=== PATIENT | female | born 1980 | race Caucasian/White ===

== ENCOUNTER 2016-07-20 12:38 | Emergency (ER) | payer OTHER ==
[2016-07-20] MEDS ORDERED: Ondansetron ODT TAB* 4 MG PO ONE (14:04)
[2016-07-20] MEDS ORDERED: Meclizine TAB* 12.5 MG PO ONE (14:04)
--- NOTE | 2016-07-20 14:04 | UC ---
Dizzy HPI HPI Summary: 2 DAYS AGO SLIPPED ON THE ICE AND FELL ON HER BUTTOCKS. HAD INSTANT NAUSEA, TINNITUS AND NECK PAIN. FEELS "FOGGY". INTERMITTENT DIZZINESS. SX WORSE WHEN SHE TURNS HER HEAD TO THE RIGHT. NO NUMBNESS OR TINGLING. STATES AFTER THE INCIDENT SHE WENT TO GO TO THE STORE AND THEN THE NEXT THING SHE REMEMBERS IS HER STANDING OVER HER IN HER TRUCK TELLING HER TO WAKE UP. REPORTS POSSIBLE LOC FOR ABOUT 10 MINUTES. - History Of Current Complaint Chief Complaint: UCHeadInjury Stated Complaint: FELL-DIZZY/NECK COMPLAINT Time Seen by Provider: 07/20/16 13:56 Hx Obtained From: Patient Hx Last Menstrual Period: 07/07/16 Onset/Duration: Sudden Onset, Lasting Days, Still Present Timing: Constant Severity Initially: Moderate Severity Currently: Moderate Pain Intensity: 10 - LYING ON EXAM TABLE IN NO ACUTE DISTRESS Pain Scale Used: 0-10 Numeric Character: Lightheaded, Dizzy Aggravating Factor(s): Change In Head Position Alleviating Factor(s): Nothing Associated Signs And Symptoms: Positive: Nausea, Tinnitus. Negative: Vomiting, Diaphoresis, Chest Pain, SOB, Palpitations, Unsteady Gait, Visual Changes, Decreased Oral Intake, Change In Medication - Allergies/Home Medications Allergies/Adverse Reactions: Allergies Allergy/AdvReac Type Severity Reaction Status Date / Time No Known Allergies Allergy Verified 07/08/13 17:34 PMH/Surg Hx/FS Hx/Imm Hx - Additional Past Medical History Additional PMH: CHRONIC PAIN Endocrine History Of: Denies: Diabetes, Thyroid Disease Cardiovascular History Of: Denies: Cardiac Disorders, Hypertension Respiratory History Of: Denies: COPD, Asthma GI/ History Of: Denies: Ulcer - Surgical History Surgical History: Yes Surgery Procedure, Year, and Place: TUBAL LIGATION. DECOMPRESSION IN THE NECK. LEFT SHOULDER SURGERY X2 - Family History Known Family History: Positive: Other - GASTRIC CANCER, HYPOTHYROID - Social History Alcohol Use: Rare Substance Use Type: None Smoking Status (MU): Light Every Day Tobacco Smoker Type: Cigarettes Amount Used/How Often: 1/2 PPD Length of Time of Smoking/Using Tobacco: 10 YEARS Have You Smoked in the Last Year: Yes Review of Systems Constitutional: Other - DIZZY ENT: Other - TINNITUS Respiratory: Negative Cardiovascular: Negative Gastrointestinal: Other - NAUSEA Genitourinary: Negative Neurological: Headache All Other Systems Reviewed And Are Negative: Yes Physical Exam Triage Information Reviewed: Yes Appearance: Well-Appearing, Well-Nourished, Pain Distress - APPEARS UNCOMFORTABLE Vital Signs: Initial Vital Signs Temp 98.4 F 07/20/16 12:45 Pulse 105 07/20/16 12:45 Resp 18 07/20/16 12:45 BP 180/108 07/20/16 12:45 Pulse Ox 100 07/20/16 12:45 Vital Signs Reviewed: Yes Eyes: Positive: Conjunctiva Clear ENT: Positive: Hearing grossly normal Neck: Positive: Supple, No Lymphadenopathy, Other: - DIFFUSELY TENDER OVER POSTERIOR NECK Respiratory: Positive: No respiratory distress, No accessory muscle use Cardiovascular: Positive: Pulses Normal Abdomen Description: Positive: Soft Musculoskeletal: Positive: No Edema, ROM Limited @ - NECK Neurological: Positive: Alert Psychological: Positive: Age Appropriate Behavior Skin: Negative: rashes Dizzy Course/Dx - Course Course Of Treatment: ZOFRAN AND MECLIZINE GIVEN. CT HEAD AND NECK. RESULTS PENDING. TRANSFER OF CARE TO DR. SUKI ABBOTT - [facility]. - Differential Dx/Diagnosis Provider Diagnoses: NECK PAIN/DIZZINESS - Physician Notifications Discussed Patient Care With: DR. SUKI ABBOTT Time Discussed With Above Provider: 14:40 - TRANSFER OF CARE - SHIFT CHANGE Discharge - Discharge Plan Condition: Stable Disposition: OTHER Discharge Disposition Comment: TRANSFER OF CARE TO DR. SUKI ABBOTT - SHIFT CHANGE
--- NOTE | 2016-07-20 15:00 | RAD ---
indication: Skull base pain after Slip and fall followed by syncopal episode. Relevant surgical history includes Chiari decompression. COMPARISON: None A CT scan of the brain and c-spine was performed without intravenous contrast enhancement. Contiguous axial sections were obtained from the lung apices through the vertex. BRAIN: The ventricles, cisterns and sulci are within normal limits. No significant focal abnormality or mass effect is seen. The whaley-white differentiation is adequately maintained. There is no evidence for intracranial hemorrhage. No acute bony abnormality is present. Evidence of prior occipital bone excision around the foramen magnum is apparent. The mastoid air cells are appropriately aerated. The visualized paranasal sinuses are clear. C-SPINE: On the sagittal plane images there is straightening of the normal cervical lordosis. The vertebral bodies and facet joints are otherwise appropriately aligned. The dens is intact. The atlantodental interval is normal. There is no prevertebral soft tissue swelling. There is no evidence of acute bony fracture or dislocation. There is no hyperdense material in the cervical canal to indicate hemorrhage. The visualized musculature and soft tissues are normal. There is no gross lymphadenopathy visualized. The visualized portion of the lung apices are clear. IMPRESSION: 1. No acute calvarial fracture or acute intracranial hemorrhage. 2. Nonspecific straightening of the normal cervical lordosis without acute fracture or dislocation of the cervical spine.
[2016-07-20 16:31] VITALS: BP 123/80
--- NOTE | 2016-09-02 17:09 | ED ---
Edwin Ng Matthew, violaibed for Marcia Ann MD on 07/20/16 at 1550 . Progress - Progress Note Progress Note: Reviewed case with Dr. Regan at sign out. At sign out, awaiting ct reports. Pt c/o dizziness and discomfort and nausea when turning head to the Right. + headache, no vis / aud issues (except with turning head to the right). No sob / cp / palpitations. No new p/d/w. + left arm dysesthesias, chronic. Doesn't think has changed from baseline. No bowel or bladder sx. Reviewed CT brain / CT spine. Nonspecific, nonacute findings. Paged NS. Paged again. d/w NS PROGRAM MANAGEMENT SPECIALIST. Per conversation with Elisabeth Mai - pt to go to ED for further eval / tx. If pt unable to go to ED, then she should call the office NS (Dr. Smith) at 08:30am on Saturday morning for same day appointment. D/w with Ms. Byrd. She is unable to go to the ED now due to children commitments. But thinks she might go later today. Soft collar given to her (offered hard collar, but declines). Questions answered to the best of my ability. Repeat vs noted. - Results/Orders Results/Orders: Brain CT: IMPRESSION: 1. No acute calvarial fracture or acute intracranial hemorrhage. 2. Nonspecific straightening of the normal cervical lordosis without acute fracture or dislocation of the cervical spine. Cervical Spine CT: IMPRESSION: 1. No acute calvarial fracture or acute intracranial hemorrhage. 2. Nonspecific straightening of the normal cervical lordosis without acute fracture or dislocation of the cervical spine. Course/Dx - Course Course Of Treatment: see above - Diagnoses Provider Diagnoses: Neck pain, Vertigo - Provider Notifications Discussed Care Of Patient With: Consult called for Dr. Smith at 15:20 and 15: 56. Jenny Mai (IDA at [facility]) at 15:59 -- Notified of patient's history. [facility] at 16:[address] Pickens (ED Physician) at 16:29 -- Notified of patient's history. Time Discussed With Above Provider: 14:40 - TRANSFER OF CARE - SHIFT CHANGE The documentation as recorded by the Edwin marin Matthew accurately reflects the service I personally performed and the decisions made by me, Marcia Ann MD.
== END 2016-07-20 16:35 ==
LOC: UCEAST 12:38
DX: M54.2 Cervicalgia (principal); F17.290 Nicotine dependence, other tobacco product, uncomplicated; W00.0XXA Fall on same level due to ice and snow, initial encounter
CPT/HCPCS: 70450; 72125; 99201; A9270-GY; G0463

== ENCOUNTER 2018-08-19 09:17 | Emergency (ER) | payer OTHER ==
[2018-08-19 09:36] VITALS: BP 131/82
--- NOTE | 2018-08-19 09:53 | UC ---
Ear Complaint HPI - HPI Summary HPI Summary: 37 yo female presents with right ear pain and popping for the last 3 days. Yesterday her right ear began to drain clear fluid that turned yellow in color. Denies fever, chills, sinus symptoms, cough, or trauma to the ear. - History of Current Complaint Chief Complaint: UCEar Stated Complaint: EAR PAIN Time Seen by Provider: 08/19/18 09:52 Hx Obtained From: Patient Hx Last Menstrual Period: 08/17/18 Onset/Duration: Gradual Onset Severity Initially: Moderate Severity Currently: Moderate Pain Intensity: 7 Pain Scale Used: 0-10 Numeric - Allergies/Home Medications Allergies/Adverse Reactions: Allergies Allergy/AdvReac Type Severity Reaction Status Date / Time No Known Allergies Allergy Verified 08/19/18 09:36 PMH/Surg Hx/FS Hx/Imm Hx - Additional Past Medical History Additional PMH: Neck pain - Surgical History Surgical History: Yes Surgery Procedure, Year, and Place: TUBAL LIGATION. DECOMPRESSION IN THE NECK. LEFT SHOULDER SURGERY X2 - Family History Known Family History: Positive: Other - GASTRIC CANCER, HYPOTHYROID - Social History Occupation: Employed Full-time Lives: With Family Alcohol Use: Rare Substance Use Type: Prescribed Smoking Status (MU): Light Every Day Tobacco Smoker Type: Cigarettes Amount Used/How Often: 1/2 PPD Length of Time of Smoking/Using Tobacco: 10 YEARS Have You Smoked in the Last Year: Yes Household Exposure Type: Cigarettes Review of Systems All Other Systems Reviewed And Are Negative: Yes Constitutional: Positive: Negative Skin: Positive: Negative Eyes: Positive: Negative ENT: Positive: Ear Ache Respiratory: Positive: Negative Cardiovascular: Positive: Negative Gastrointestinal: Positive: Negative Neurovascular: Positive: Negative Neurological: Positive: Negative Psychological: Positive: Negative Physical Exam - Summary Physical Exam Summary: GENERAL: NAD. WDWN. No pain distress. SKIN: No rashes, sores, lesions, or open wounds. HEENT: Head: AT/NC Eyes: EOM intact. Conjunctiva clear without inflammation or discharge. Ears: Hearing grossly normal. RIGHT EAR: Moderate clear/yellow drainage with mild canal edema and erythema. TTP about auricle and tragus. No mastoid tenderness. LEFT EAR: TM intact and WNL. Nose: Nasal mucosa pink and moist. NTTP maxillary and frontal sinus. Throat: Posterior oropharynx without exudates, erythema, or tonsillar enlargement. Uvula midline. NECK: Supple. Nontender. No lymphadenopathy. CHEST: CTAB. No r/r/w. No accessory muscle use. Breathing comfortably and in no distress. CV: RRR. Without m/r/g. Pulses intact. NEURO: Alert. PSYCH: Age appropriate behavior. Triage Information Reviewed: Yes Vital Signs: Initial Vital Signs Temp 98.1 F 08/19/18 09:32 Pulse 65 08/19/18 09:32 Resp 18 08/19/18 09:32 BP 131/82 08/19/18 09:32 Pulse Ox 100 08/19/18 09:32 Vital Signs Reviewed: Yes Ear Complaint Course/Dx - Course Course Of Treatment: Right otitis externa - Differential Dx/Diagnosis Provider Diagnosis: Otitis externa Discharge - Sign-Out/Discharge Documenting (check all that apply): Patient Departure All imaging exams completed and their final reports reviewed: No Studies - Discharge Plan Condition: Stable Disposition: HOME Prescriptions: Ofloxacin 0.3% (Ear Drop)* [Floxin 0.3% OTIC.BRETT (Ear Drop)] 5 drop RIGHT EAR BID #1 [id number] Patient Education Materials: Otitis Externa (ED) Referrals: Elan Schroeder MD [Primary Care Provider] - Additional Instructions: If you develop a fever, shortness of breath, chest pain, new or worsening symptoms - please call your PCP or go to the ED. - Billing Disposition and Condition Condition: STABLE Disposition: Home
== END 2018-08-19 10:05 | disposition home or self-care (01) ==
LOC: UCEAST 09:17
DX: H60.91 Unspecified otitis externa, right ear (principal); F17.210 Nicotine dependence, cigarettes, uncomplicated
CPT/HCPCS: 99212; G0463